=== PATIENT | male | born 1955 | race Caucasian/White ===

== ENCOUNTER 2020-06-21 12:22 | Inpatient (IN) | payer OTHER ==
[~2020-06-21] VITALS: Ht 177.8 cm; Wt 77.0 kg
[2020-06-21] VITALS (15 sets, daily range): BP systolic 104–131; BP diastolic 51–71
[2020-06-21 12:43] LABS: BE(vivo) 0.3 mmol/L (-2 to +3); HCO3 22.4 mmol/L (22.0-26.0); PCO2 28.3 mmHg (35.0-45.0); PO2 66.4 mmHg (80.0-100.0); pH 7.516 (7.360-7.450); sO2 95.1 % (92.0-98.0)
[2020-06-21 12:47] LABS: BASOPHILS 0.6 % (0.0-2.0); EOSINOPHILS 1.7 % (0.0-3.0); HEMATOCRIT 34.5 % (42.0-52.0); HEMOGLOBIN 10.8 gm/dL (14.0-18.0); LYMPHOCYTES 14.1 % (24.0-44.0); MCH 24.3 pg (26.0-34.0); MCHC 31.3 g/dL (28.0-37.0); MCV 77.6 fL (80.0-100.0); MONOCYTES 8.4 % (1.0-8.0); POLYS 75.2 % (36.0-66.0); RBC 4.45 mil/uL (4.50-6.00); RDW 23.6 % (10.5-14.5); WBC 5.3 thou/uL (4.0-11.0)
[2020-06-21 12:55] LABS: ANION GAP 14 mmol/L (7-16); BUN 30 mg/dL (7-18); CALCIUM 8.4 mg/dL (8.5-10.1); CHLORIDE 101 mmol/L (98-107); CO2 25 mmol/L (21-32); CREATININE 1.6 mg/dL (0.7-1.3); GLUCOSE 259 mg/dL (74-106); POTASSIUM 3.5 mmol/L (3.5-5.1); SODIUM 140 mmol/L (136-145)
[2020-06-21 13:05] LABS: ALBUMIN 2.4 g/dL (3.4-5.0); MAGNESIUM 1.7 mg/dL (1.8-2.4); SGOT 68 U/L (15-37); SGPT 41 U/L (16-63); TOTAL BILIRUBIN 3.7 mg/dL (0.2-1.0); TOTAL PROTEIN 5.8 g/dL (6.4-8.2); TROPONIN-I <0.06 ng/mL (<0.06)
[2020-06-21 13:23] LABS: PLATELET COUNT 53 thou/uL (150-400); POLYCHROMASIA 1+
[2020-06-21 13:24] LABS: OVALOCYTES FEW; SCHISTOCYTES OCCASIONAL; TARGET CELLS 1+; TEARDROPS 1+
--- NOTE | 2020-06-21 13:45 | EKG ---
[address] [place] [address] ELECTROCARDIOGRAM REPORT Name: DORIE ROME Room #: SATNAM Marcos#: [id number] Admission: 06/21/20 Attend Phys: Discharge: Date of : 57 Report #: [id number] [facility] ED Test Date: 2020-06-21 Test Time: 12:56:11 Pat Name: DORIE ROME Department: Room: Gender: M Marketing Development Representative: susanne : 1955 Requested By: Brenton Hdz Order Number: [id number] MD: Abundio Crane Measurements Intervals [place] Rate: 92 P: 45 PA: 136 QRS: -34 QRSD: 75 T: QT: 476 QTc: 589 Interpretive Statements Sinus rhythm Atrial premature complexes in couplets Left axis deviation Anteroseptal infarct, age indeterminate Nonspecific ST and T wave abnormality Prolonged QT interval No previous ECG available for comparison Electronically Signed On 06-21-2020 13:45:31 CDT by Abundio Crane [email or web address] <ELECTRONICALLY SIGNED> By: Abundio Crane MD, [facility] 06/21/20 1345 1256 1256 Abundio Crane MD, FACC /EPI
[2020-06-21 14:45] LABS: APTT 27.5 Seconds (24.5-32.8); INR 1.33; PROTIME 14.3 Seconds (9.3-11.4)
[2020-06-21 16:12] LABS: URINE BILIRUBIN NEGATIVE (Negative); URINE BLOOD TRACE (Negative); URINE CLARITY CLEAR; URINE COLOR YELLOW; URINE GLUCOSE-RANDOM* 1+ (Negative); URINE KETONES TRACE (Negative); URINE NITRITE-REFLEX NEGATIVE (Negative); URINE PROTEIN (DIPSTICK) NEGATIVE (Negative); URINE SPECIFIC GRAVITY 1.025 (1.005-1.035)
[2020-06-21 16:13] LABS: URINE LEUKOCYTES-REFLEX 1+ (Negative)
--- NOTE | 2020-06-21 16:13 | NUR ---
NG 56 AT NASAL PASSAGE, WILL CONFIRM PLACEMENT WITH XRAY
[2020-06-21 16:21] LABS: WBC CLUMPS Moderate (None Seen)
[2020-06-21 16:22] LABS: BACTERIA-REFLEX >30 Many /HPF (None Seen); URINE WBC-REFLEX >25 Many /HPF (0-5)
[2020-06-21 16:23] LABS: CASTS None Seen /LPF (None Seen); CRYSTALS None Seen /LPF (None Seen); SQUAMOUS None Seen /LPF (0-3); URINE RBC 0-2 Rare /HPF (0-2)
[2020-06-21] MEDS ORDERED: SYNTHROID125 MC1 PO (16:34)
[2020-06-21] MEDS ORDERED: MAG-OXIDE400 MG PO (16:35)
[2020-06-21] MEDS ORDERED: PROTONIX40 M2 PO (16:35)
[2020-06-21] MEDS ORDERED: PRAVASTATIN SOD80 MG PO (16:36)
[2020-06-21] MEDS ORDERED: POTASSIUM GLUC500 MG PO (16:36)
[2020-06-21] MEDS ORDERED: URSODIOL300 MG PO (16:37)
[2020-06-21] MEDS ORDERED: SPIRONOLACTONE100 M1 PO (16:37)
[2020-06-21 16:42] LABS: SOURCE RT CHEST; TOTAL VOLUME 58 mL
[2020-06-21 16:43] LABS: CLARITY CLOUDY; COLOR AMBER
[2020-06-21 16:55] LABS: BF NUCLEATED CELLS 78 /mm3; BF RBC 12192 /mm3
[2020-06-21 17:56] LABS: BF MACROPHAGE 64 %; BF NEUTROPHILS 5 %
--- NOTE | 2020-06-21 21:06 | NUR ---
1800-RECEIVED FROM E.R. VIA STRETCHER 1720. PT ARRIVED W DIAPER SATURATED IN COLD URINE, LEAKED OUT TO SHEET.COMPLETE BATH & BED CHANGE.--VW 1900-PICTURES TO BE TAKEN BY CREATIVE SERVICES INTERN RN. CARE TURNED OVER.--VW
[2020-06-22] VITALS (22 sets, daily range): BP systolic 96–143; BP diastolic 55–80
[2020-06-22 09:53] LABS: ALBUMIN 2.2 g/dL (3.4-5.0); CALCIUM 8.1 mg/dL (8.5-10.1); CREATININE 1.8 mg/dL (0.7-1.3); POTASSIUM 3.3 mmol/L (3.5-5.1); TOTAL BILIRUBIN 3.6 mg/dL (0.2-1.0); TOTAL PROTEIN 5.4 g/dL (6.4-8.2)
[2020-06-22 10:01] LABS: MAGNESIUM 1.7 mg/dL (1.8-2.4)
[2020-06-22 10:07] LABS: BODY FLUID ALBUMIN 0.5 g/dL (Not Estab.); BODY FLUID AMYLASE 17 U/L (()); BODY FLUID GLUCOSE 234 mg/dL (()); BODY FLUID LDH 60 IU/L (()); BODY FLUID PROTEIN 0.9 g/dL (())
[2020-06-22 10:08] LABS: HEMATOCRIT 33.4 % (42.0-52.0); HEMOGLOBIN 10.4 gm/dL (14.0-18.0); MCH 24.5 pg (26.0-34.0); MCHC 31.1 g/dL (28.0-37.0); MCV 78.8 fL (80.0-100.0); RBC 4.24 mil/uL (4.50-6.00); RDW 24.1 % (10.5-14.5)
[2020-06-22 12:45] LABS: % SATURATION 22 % (20-39); IRON 48 ug/dL (65-175); TIBC 214 ug/dL (250-450)
--- NOTE | 2020-06-22 15:21 | NUR ---
ASSESSMENT: HARRISON REVIEWED CHART. PT WAS ADMITTED FROM [facility] DUE TO ENCEPHALOPATHY/PLEURAL EFFUSION. HARRISON REACHED OUT TO [facility] ADMISSIONS AND SPOKE WITH IGLESIA. SHE REPORTS PATIENTS IS A LTC RESIDENT WITH THEM AND HIS MEDICAID IS INACTIVE BUT THEY ARE WORKING ON REINSTATING MEDICAID FOR HIM THERE AFTER SNF. PT IS HIS OWN PERSON BUT DOES HAVE A SISTER NAMED NICK [phone]. GI IS CONSULTED FOR PATIENT AND PT IS CURRENTLY ON CLEARS. PLANS ARE FOR PATIENT TO RETURN TO [facility] ONCE MEDICALLY STABLE TO DO SO. IGLESIA REPORTS THEY CAN ACCEPT PATIENT ONCE HE IS STABLE. SHE STATES IF HE IS STABLE OVER THE WEEKEND TO CONTACT ANGELA MOSELEY AT [phone] TO FACILITATE OR THEIR RN PRODUCTION JUDSON [phone]. PT REMAINS IN THE ICU AT THIS TIME AND ON IV ANBX. HARRISON WILL CONTINUE TO FOLLOW TO ASSIST NEEDED.
--- NOTE | 2020-06-22 19:35 | NUR ---
0800 PT LETHARGIC WILL SPEAK WITH ONE WORD ANSWERS, CONFUSED, AND USING REPETITIVE SPEECH. NPO. NG TUBE IN PLACE. PASSING LARGE AMOUNT OF FLATUS. DENIES PAIN. 1000 PT MORE AWAKE AND CONVERSING IN SENTANCES. SPEECH STILL REPETIVE. REQUIRES MUTIPLE CUES TO FOLLOW DIRECTIONS. PULLED NG TUBE OUT. AMARILYS BARCENAS SUPERVISOR WHITE SUGAR AND DR PRITCHARD INFORMED AND OK TO LEAVE OUT AND START ON FULL LIQUID DIET. 1200 PT TOLERATING FULL LIQUID DIET WELL REQUESTING FREQUENT DRINKS. COMPLAINING OF THIRST. 1500 PT ABLE TO AMBULATE TO COMMODE WITH EXTRA CUES FOR MOVEMENT. STOOL OB SENT. PT REQUESTING TO CALL HIS SISTER. NO NUMBER FOR SISTER ON PAPERWORK FROM HALF-WAY. 1800 STARTED ON LOW FAT ADA DIET AND TOLERATING WELL. ABD DISTENDED THIS EVENING. PT DENIES PAIN. ALL LACTATE RESULTS CALLED TO DR REID AND UPDATED OF PATIENT'S I&O'S, STATUS, AND ABD DISTENSION.
[2020-06-23] VITALS (21 sets, daily range): BP systolic 92–154; BP diastolic 57–103
[2020-06-23 02:17] LABS: HEMOGLOBIN 9.7 gm/dL (14.0-18.0)
[2020-06-23 02:19] LABS: MCH 24.4 pg (26.0-34.0); MCHC 31.3 g/dL (28.0-37.0); MCV 77.9 fL (80.0-100.0); RBC 3.98 mil/uL (4.50-6.00); RDW 24.5 % (10.5-14.5); WBC 4.5 thou/uL (4.0-11.0)
[2020-06-23 02:22] LABS: CREATININE 1.7 mg/dL (0.7-1.3); MAGNESIUM 1.7 mg/dL (1.8-2.4); POTASSIUM 3.1 mmol/L (3.5-5.1)
--- NOTE | 2020-06-23 05:12 | NUR ---
Patient very restless at the beginning of shift. Constantly calling out for something; water, nurse, food, "okay". Called ACCOUNTING CONSULTANT Beltran for something to help the patient sleep. Melatonin given as well as benadryl around 0100. Patient did fall alseep solid for a couple of hours and has remained drowsy for the rest of the shift; waking up and yelling but, then able to go back to sleep. Heart rate and rhythm continue to be stable; sinus in the 70's. Blood pressures stable. Adequate oxygenation on room air. Pt is able to swallow well and is taking clear liquid diet. Marginal U/O noted this am. Recheck of K+ was 3.1, replaced per electrolyte protocol. Recheck was still 3.1 and Mg+ was 1.7. Both replaced per e-lyte protocol. See EMAR for details. See documentation on interventions for assessment details. Patent is progressing towards goals.
[2020-06-23 08:36] LABS: MAGNESIUM 1.9 mg/dL (1.8-2.4); POTASSIUM 3.3 mmol/L (3.5-5.1)
--- NOTE | 2020-06-23 19:49 | NUR ---
PT ORIENTATION IMPROVED X3 THROUGHOUT SHIFT. DC TPN AND INSULIN GTT PER RANCHO. DIET ADDED. ATE FULL LUNCH. AT BEDSIDE FROM [id number]. REMOVED 2.5L IN DIALYSIS PER HOUSE SUPERVISOR. [address] REID NOTIFIED. ORDERS RECIEVED. GOT PT UP TO DANGLE AT SIDE OF BED FOR 2 HRS IN AFTERNOON. STEADY W/O SUPPORT ON EDGE OF BED. WOULD BENEFIT FROM PT CONSULT. PT PROGRESSING IN NURSING PLAN OF CARE.
--- NOTE | 2020-06-23 19:54 | NUR ---
PT CONTINUES TO BE ORIENTED X2. SISTER/DPOA AT BEDSIDE 1400. SHE STATES SHE IS FRUSTRATED W/PT CURRENT FACILITY AND WISHES TO FIND NEW PLACEMENT, WOULD GREATLY APPRECIATE CASE MANAGEMENT ASSISTANCE IF POSSIBLE. DR. REID NOTIFIED REGARDING PT CHEST XRAY. ORDER FOR ALBUMIN AND LASIX. PT W/MULTIPLE LIQUID STOOLS. AFEBRILE.
[2020-06-24] VITALS (40 sets, daily range): BP systolic 87–140; BP diastolic 60–91
[2020-06-24 03:21] LABS: HEMATOCRIT 28.9 % (42.0-52.0); HEMOGLOBIN 9.1 gm/dL (14.0-18.0); MCH 24.7 pg (26.0-34.0); MCHC 31.4 g/dL (28.0-37.0); MCV 78.5 fL (80.0-100.0); RBC 3.69 mil/uL (4.50-6.00); RDW 23.7 % (10.5-14.5); WBC 4.1 thou/uL (4.0-11.0)
[2020-06-24 03:34] LABS: CREATININE 1.6 mg/dL (0.7-1.3); MAGNESIUM 1.8 mg/dL (1.8-2.4); POTASSIUM 3.4 mmol/L (3.5-5.1)
--- NOTE | 2020-06-24 06:29 | NUR ---
Patient very restless with labored breathing at the beginning of the shift. Patient up to bsc to have a BM. Bath given, bed changed. Pt wtih good strenght and understands direction. Patient more lucid this shift than the previous. New PIV started and patient had several more bMs. Patient was not able to get comfortable and his breathing became more labored. Added 2l o2 for comfort as O2 sats were mid 90's RR, upper 20's. Heart rate and rhythm regular with good blood pressure. Called Dr. Zimmerman. Ativan ordered. given at 0120- patient has been sleeping since this was given. Patient had not slept in 3 days. am labs noted. K- 3.4, replaced per elyte protocol. US here this am to do abdominal US. No famikly called this shift. See docum,entation on interventions for assessment details. Patient is not really progressing towards goals.
[2020-06-24 07:42] LABS: SOURCE CHEST
[2020-06-24 11:43] LABS: INR 1.28; PROTIME 13.8 Seconds (9.3-11.4)
[2020-06-24 11:59] LABS: ALBUMIN 2.5 g/dL (3.4-5.0); DIRECT BILIRUBIN 1.3 mg/dL (<0.1-0.2); TOTAL BILIRUBIN 2.5 mg/dL (0.2-1.0); TOTAL PROTEIN 5.6 g/dL (6.4-8.2)
--- NOTE | 2020-06-24 18:25 | NUR ---
DROWSY MOST OF THE DAY, ENCOURAGED AND ASSISTED WITH MEALS. REMAINS ON RA WITH WORK OF RESPIRATIONS. BLOOD SUGARS 311, 275, 137. AFEBRILE. SISTER VISITED AND WAS UPDATED ON PATIENT PROGRESS AND PLAN OF CARE.
[2020-06-25] VITALS (33 sets, daily range): BP systolic 106–151; BP diastolic 61–100
[2020-06-25 08:00] LABS: ALBUMIN 2.4 g/dL (3.4-5.0); CALCIUM 8.2 mg/dL (8.5-10.1); CREATININE 1.2 mg/dL (0.7-1.3); MAGNESIUM 1.7 mg/dL (1.8-2.4); POTASSIUM 3.5 mmol/L (3.5-5.1); TOTAL BILIRUBIN 2.3 mg/dL (0.2-1.0); TOTAL PROTEIN 5.6 g/dL (6.4-8.2)
[2020-06-25 08:06] LABS: INR 1.36; PROTIME 14.6 Seconds (9.3-11.4)
--- NOTE | 2020-06-25 08:45 | NUR ---
ASSUMMED CARE OF THIS PATIENT FROM THE NIGHT NURSE AT 0700. SPOKE WITH THE PATIENT'S SISTER, NICK AND UPDATED HER ON PATIENT'S STATUS.
[2020-06-25 09:34] LABS: HEMATOCRIT 28.6 % (42.0-52.0); MCH 24.8 pg (26.0-34.0); MCHC 31.3 g/dL (28.0-37.0); RBC 3.62 mil/uL (4.50-6.00); RDW 23.3 % (10.5-14.5); WBC 3.3 thou/uL (4.0-11.0)
--- NOTE | 2020-06-25 14:21 | NUR ---
PATIENT REQUESTED THAT THIS NURSE CALL HIS SISTER, NICK, TO COME UP TO VISIT. SISTER NOTIFIED AND WILL BE UP LATER.
--- NOTE | 2020-06-25 15:07 | PATH ---
[facility] [address] [place] [address] PATHOLOGY RPT PROCEDURE Name: DORIE ROME Room #: 242-P ADM IN M.R.#: [id number] Admission: 06/21/20 Date of : 57 Discharge: Report #: [id number] Path Case #: [id number] Note [facility] Accession Number: [id number] TESTS RESULT FLAG UNITS REF RANGE LAB Clinician Provided Cytology Information No. of containers..01 Other (Miscellaneous) Source: RT PLEURAL FLUID DIAGNOSIS: RT PLEURAL FLUID NEGATIVE FOR MALIGNANT EPITHELIAL CELLS. REACTIVE MESOTHELIAL CELLS ARE PRESENT. THIS INTERPRETATION INCLUDES EVALUATION OF A CELL BLOCK. Pathologist ICD10: 02 J90 Signed out by: 02 Harini Stanford MD, Pathologist NPI- [id number] Performed by: 01 Lien Spencer, Vp Design ([facility]) Gross description: 01 20ML, RED, 1TP 1CB /LCS 06/22/2020 0706 Local FLAG LEGEND: L-Low Normal,H-High Normal,LL-Alert Low,HH-Alert High <-Panic Low,>-Panic High,A-Abnormal,AA-Critical Abnormal Performed at: [address] [place] [address] Eduar Castillo MD, [address] [address] Harini Stanford MD, Specimen Comment: A courtesy copy of this report has been sent to [phone] Specimen Comment: Report sent to Specimen Comment: A duplicate report has been generated due to demographic updates. Performed at: [address], [place], [place] [id number] MD Eduar Castillo MD Phone: [phone]
--- NOTE | 2020-06-25 16:08 | NUR ---
SISTER IN TO VISIT
--- NOTE | 2020-06-25 19:15 | NUR ---
PATIENT SLOWLY PROGRESSING TOWARDS OUTCOME GOALS EVIDENT BY MORE RESPONSIVE TODAY. REMAINS WEAK OT AND PT IN TO WORK WITH STREGTHENING.
--- NOTE | 2020-06-25 21:17 | NUR ---
ASSUMED CARE AT 1899. PT DENIES PAIN. DYSPNIC, USING ACCESSORY MUSCLES TO BREATHE. MULTIPLE LOOSE/RUNNY STOOLS. 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 PLACED AT 2099, WILL MONITOR FOR OUTPUT.
[2020-06-26] VITALS (25 sets, daily range): BP systolic 44–154; BP diastolic 21–83
[2020-06-26 03:14] LABS: HEMOGLOBIN 8.8 gm/dL (14.0-18.0); MCH 24.8 pg (26.0-34.0); RBC 3.54 mil/uL (4.50-6.00); WBC 3.9 thou/uL (4.0-11.0)
[2020-06-26 03:17] LABS: MCHC 31.3 g/dL (28.0-37.0); MCV 79.1 fL (80.0-100.0); RDW 23.8 % (10.5-14.5)
[2020-06-26 03:21] LABS: INR 1.37; PROTIME 14.7 Seconds (9.3-11.4)
[2020-06-26 03:24] LABS: ALBUMIN 2.5 g/dL (3.4-5.0); CALCIUM 7.9 mg/dL (8.5-10.1); CREATININE 1.2 mg/dL (0.7-1.3); MAGNESIUM 1.6 mg/dL (1.8-2.4); POTASSIUM 3.1 mmol/L (3.5-5.1); TOTAL PROTEIN 5.6 g/dL (6.4-8.2)
[2020-06-26 08:47] LABS: MAGNESIUM 1.5 mg/dL (1.8-2.4); POTASSIUM 3.7 mmol/L (3.5-5.1)
--- NOTE | 2020-06-26 09:42 | NUR ---
discussed during am rounds. cm asked to check to see if he was on c transplant list. cm spoke with geraldine dempsey at [facility] to see if have record, information provided to cm that he was going to have eval but not on the list. cm checked to see if he could go back with pleurx drain and o2. " no will not take back on a pleurx cath drain"/[facility].
--- NOTE | 2020-06-26 10:45 | NUR ---
Susan Balderas-sister called this am to inquire regarding pt status, updated. stated she wanted to speak with doctors today. Dr. Herr and JOSE EDUARDO Kang present, both informed of her request. JOSE EDUARDO TABARES placed call, unable to reach her at this time. pt consumed am meal, able to consume limited amount, becomes increasingly short of air with activity of eating.
--- NOTE | 2020-06-26 14:29 | NUR ---
pt up from chair on his own even with call light and chair alarm in place. pulled out flexiseal in the process, iv and all cords taunt. soiled gown partially in toilet. pt previously informed of need to call, then only get up with assistance. cleaned up, back to bed, flexiseal replaced, supriya wrist restraints applied to keep pt safe in bed.
--- NOTE | 2020-06-26 16:26 | NUR ---
PT IS FROM [facility] FAXED CLINICAL UPDATE TO FACILITY RECEIVED CONFIRMATION AND LEFT MSG WITH ADM.
[2020-06-27] VITALS (18 sets, daily range): BP systolic 101–137; BP diastolic 38–87
[2020-06-27 05:05] LABS: INR 1.43; PROTIME 15.3 Seconds (9.3-11.4)
[2020-06-27 05:30] LABS: ALBUMIN 2.2 g/dL (3.4-5.0); CALCIUM 8.2 mg/dL (8.5-10.1); CREATININE 1.3 mg/dL (0.7-1.3); TOTAL BILIRUBIN 2.3 mg/dL (0.2-1.0); TOTAL PROTEIN 5.3 g/dL (6.4-8.2)
--- NOTE | 2020-06-27 09:31 | NUR ---
spoke with sister marylin via phone call. consult for hospice house [facility] [place]. " yes would like referral sent there do not want him going back to [facility]"/marylin. cm education that hospice will eval to see if ok for house if not might have to look into going back to [facility] with hospice " no i don't want him to have to go back there"/marylin.
--- NOTE | 2020-06-27 10:36 | NUR ---
OT worked with pt after breakfast. short of air r/t eating meal, then when working with OT, his sao2 decreased to 89% and 02 increased to 6L/nc. shortness of air resolved, pt ambulated around desk x1 with PT. in chair with chair alarm intact. remains on 6L/nc at this time.
--- NOTE | 2020-06-27 13:45 | NUR ---
back to bed with use of gait belt, walker and 2 assist. ativan iv given, resting quietly, supriya wrist restraints removed. sister Davis present and updating on all cares prior to intervention.
--- NOTE | 2020-06-27 17:45 | NUR ---
called to give report to SHAHAB Dumas. not available at this time.
--- NOTE | 2020-06-27 18:25 | NUR ---
rn to CCU Rm #[phone] to obtain bed. room not clean at this time. report called to SHAHAB Dumas. she stated housekeeping request has been placed. transfer pending until clean room available. called Susan Balderas- sister/DPOA to notify her of pending transfer when new room in clean.
[2020-06-28 00:20] VITALS: BP 133/77
[2020-06-28 04:00] VITALS: BP 128/77
[2020-06-28 06:14] LABS: ALBUMIN 2.4 g/dL (3.4-5.0); CALCIUM 8.4 mg/dL (8.5-10.1); CREATININE 1.3 mg/dL (0.7-1.3); POTASSIUM 4.2 mmol/L (3.5-5.1); TOTAL BILIRUBIN 2.4 mg/dL (0.2-1.0); TOTAL PROTEIN 5.9 g/dL (6.4-8.2)
[2020-06-28 07:49] VITALS: BP 119/75
--- NOTE | 2020-06-28 08:36 | NUR ---
ASSUME CARE 1900. PT/VITALS STASBLE. PT VERY LETHARGIC THROUGHOUT SHIFT. LABORED BREATHING NOTED. ATIVAN GIVEN AT ABOUT 1300 ON 06/27/20, AND PT IS STILL LETHARGIC TILL THIS AM. SR ON MONITOR. ASSESSMENT CHARTED. POOR PROGRESS. PLAN IS FOR PT TO TRANSFER TO HOSPICE SOON POSSIBLE. WILL CONTINUE TO MONITOR AND FOLLOW WITH POC. NO DISTRESS NOTED
[2020-06-28] MEDS ORDERED: MORPHINE IV (10:43)
[2020-06-28] MEDS ORDERED: LORAZEPAM 22 MG/1 ML IV PUSH (10:43)
--- NOTE | 2020-06-28 11:08 | NUR ---
DAYRON polishing machine tender here to reassess this am. They can accept at [facility] this morning. Pt having changes in status. Counter Professional, the hospice care sales consultant and the unit Rn talked with pt's dpoa/sister Susan and she gave verbal confirmation of outside the hospital DNR and wish to move to [facility] this am even with ongoing changes in his condition. The attending updated and agreeable to transfer this am for end of life care. Outside the hospital dnr from signed by the attending and the original to be sent with the pt. Nursing to call report and [facility] ambulance being arranged for next available pickup as pt is ready to dc. A copy of the pt's dpoa/hc directive given to the hospice liaison and a copy is being sent with the DNR for [facility].
[2020-06-28 11:23] VITALS: BP 104/61
--- NOTE | 2020-06-28 11:32 | NUR ---
PT VERY LETHARGIC. HAS BEEN SLEEPING SINCE THIS MORNING. LABOURED BREATHING. SEEN BY DR. WILLIAM. ORDERS GIVEN TO TRANSFER PT TO HOSPICE. FAMILY NOTIFIED. REPORT CALLED IN TO HI GUDINO.
[2020-06-28 11:33] VITALS: BP 126/74
--- NOTE | 2020-06-29 09:37 | NUR ---
cm notified roselyn chandler at [facility] that shantel loya pt [facility] that he dc on
== END 2020-06-28 11:45 | disposition hospice, home (50) | DRG 441 ==
LOC: ER 12:22 → EROBS 14:38 → ICU 14:38 → 2N 06-27 19:25
PROVIDERS: Emergency Medicine; Nurse Practitioner; Physician Assistant; ADMIT Internal Medicine; ATTEND Internal Medicine
PROC: 0W993ZZ Drainage of Right Pleural Cavity, Percutaneous Approach (ICD-10-PCS; principal; 2020-06-21)
DX: K72.90 Hepatic failure, unspecified without coma (principal); J18.9 Pneumonia, unspecified organism; E43 Unspecified severe protein-calorie malnutrition; J96.01 Acute respiratory failure with hypoxia; R18.8 Other ascites; N39.0 Urinary tract infection, site not specified; E87.2 Acidosis; G93.40 Encephalopathy, unspecified; E72.20 Disorder of urea cycle metabolism, unspecified; J91.8 Pleural effusion in other conditions classified elsewhere; J94.8 Other specified pleural conditions; E11.9 Type 2 diabetes mellitus without complications; Z20.822 Contact with and (suspected) exposure to COVID-19; D69.6 Thrombocytopenia, unspecified; E03.9 Hypothyroidism, unspecified; K74.60 Unspecified cirrhosis of liver; D50.9 Iron deficiency anemia, unspecified; Z66 Do not resuscitate; Z88.8 Allergy status to other drugs, medicaments and biological substances; Z79.899 Other long term (current) drug therapy; Z68.24 Body mass index [BMI] 24.0-24.9, adult
CPT/HCPCS: 10078; 10081